=== PATIENT | female | born 2000 | race African-American/Black ===

== ENCOUNTER 2024-08-28 20:32 | Emergency (ER) | payer BC ==
[~2024-08-28] VITALS: Ht 165.1 cm; Wt 67.0 kg
[2024-08-28] VITALS (11 sets, daily range): BP systolic 104–130; BP diastolic 70–87
[~2024-08-28 20:32] MED LIST: AMOXICILLIN500 MG PO; BACTRIM DS1 TAB PO; CORTISPORIN OTI10 ML AD; NO HOME MEDS; TESSALON PER100 MG PO; ZPAK PO
== END 2024-08-28 23:56 | disposition home or self-care (01) | DRG 951 ==
LOC: ED 20:32
DX: Z03.823 Encounter for observation for suspected inserted (injected) foreign body ruled out (principal)